=== PATIENT | male | born 1965 | race Caucasian/White ===

== ENCOUNTER 2021-08-01 16:58 | Emergency (ER) | payer BC ==
[2021-08-01] MEDS ORDERED: Lidocaine 2% Jelly 5 ML TUBE ONE (17:16)
[2021-08-01] MEDS ORDERED: Ondansetron PF 4 MG/2 ML Vial ONE (17:27)
[2021-08-01] MEDS ORDERED: Ketorolac Tromethamine 30 MG/ML VIAL ONE (17:27)
== END 2021-08-01 18:08 | disposition home or self-care (01) ==
LOC: BURERS 16:58
DX: T18.5XXA Foreign body in anus and rectum, initial encounter (principal); K62.5 Hemorrhage of anus and rectum; I10 Essential (primary) hypertension; G43.909 Migraine, unspecified, not intractable, without status migrainosus
CPT/HCPCS: 96374; 96375; J1885; J2405